=== PATIENT | female | born 1995 | race Caucasian/White ===

== ENCOUNTER 2017-10-14 20:15 | Emergency (ER) | payer OTHER ==
[2017-10-14] MEDS ORDERED: LIDOCAINE 1% (MPF) 30 ML INJ INFIL (21:00)
[2017-10-14] MEDS: ONDANSETRON (ODT) 4 MG TAB ODT (21:06)
[2017-10-14] MEDS: HYDROCODONE/APAP (5/325) TAB PO (21:07)
== END 2017-10-15 00:35 | disposition home or self-care (01) ==
LOC: FTE 10-15 00:35
DX: S61.411A Laceration without foreign body of right hand, initial encounter (principal); W26.8XXA Contact with other sharp object(s), not elsewhere classified, initial encounter; Y92.9 Unspecified place or not applicable
CPT/HCPCS: 12002; 73130-RT; 99283-25

== ENCOUNTER 2017-10-18 10:05 | Emergency (ER) | payer OTHER ==
[2017-10-18] MEDS: HYDROCODONE/APAP (5/325) TAB PO (11:31)
== END 2017-10-18 11:31 | disposition home or self-care (01) ==
LOC: FTE 10:05
DX: Z48.01 Encounter for change or removal of surgical wound dressing (principal)
CPT/HCPCS: 99283; Z7502

== ENCOUNTER 2018-01-04 21:37 | Emergency (ER) | payer OTHER ==
[2018-01-04] MEDS: ALBUTEROL 0.083% (NEB) 2.5 MG/3 ML AMP HHN (22:19)
[2018-01-04] MEDS: ONDANSETRON (ODT) 4 MG TAB ODT (22:32)
[2018-01-04] MEDS: DEXAMETHASONE 10 MG/ML 1 ML INJ IM (22:32)
== END 2018-01-04 22:52 | disposition home or self-care (01) ==
LOC: FTE 21:37
DX: J45.901 Unspecified asthma with (acute) exacerbation (principal)
CPT/HCPCS: 94664; 96372; 99284-25